=== PATIENT | female | born 1955 | race Caucasian/White ===

== ENCOUNTER 2018-09-07 20:52 | Inpatient (IN) | payer MEDICAID ==
[~2018-09-07] VITALS: Ht 165.1 cm; Wt 106.6 kg
[2018-09-07] MEDS ORDERED: MIDAZOLAM 1 MG/ML, 2ML ONE (21:05)
--- NOTE | 2018-09-07 21:22 | NUR ---
PT IN HOSPITAL GOWN. ALL SEDATION REMOVED DUE TO PT PRESENTING WITH LOW BP. PT REMAINS UNRESPONSIVE. ORDERED FLUIDS INFUSING AT THIS TIME. PT HAD LEE ON ARRIVAL DRAINING CLEAR YELLOW URINE. PT INTUBATED PRIOR TO ARRIVAL. 7.5 TUBE, 25 AT THE LIP. PT PLACED ON VENT BY RT.
--- NOTE | 2018-09-07 21:25 | NUR ---
EKG DONE, CXR DONE. PT ON ALL MONITORS, CARDIAC AND ETCO2 INCLUDED.
--- NOTE | 2018-09-07 21:29 | NUR ---
NO LIST OF HOME MEDS. PT DRIVING TO HOSPITAL. WILL UPDATE WHEN ARRIVES.
[2018-09-07] MEDS ORDERED: MIDAZOLAM HCL 25 MG in SODIUM CHLORIDE 0.9% 245 ML IV PRN (21:30)
[2018-09-07] MEDS ORDERED: SODIUM CHLORIDE 0.9% 1,000ML IVBOLUS ONE ×2 (21:30→23:00)
[2018-09-07] MEDS ORDERED: PLEASE ENTER ALLERGIES MC SCH (21:30)
[2018-09-07 21:45] LABS: ACETAMINOPHEN < 2 mcg/mL (10-30); SALICYLATE LEVEL < 1.7 mg/dL (2.8-20.0)
--- NOTE | 2018-09-07 22:00 | NUR ---
PT EYES ARE OPENED, PT ABLE TO FOLLOW BASIC COMMANDS. PT NOT ABLE TO MOVE LEFT HAND NOR LEFT FOOT. PT ABLE TO NOD "NO" WHEN ASKED IF IN PAIN. PT IS HERE, DOES NOT HAVE A LIST OF PT MEDS. PT STATED PT TAKES "MEDICINE CUP-FULLS" OF SUPPLEMENTS REGULARLY AT HOME.
--- NOTE | 2018-09-07 22:35 | NUR ---
[id number] Addendum: 09/07/18 at 2236 by KENROY ERIC
--- NOTE | 2018-09-07 22:38 | NUR ---
PT MOVING AROUND MORE. PT FAMILY IN ROOM, ASKING PT TO MOVE HER EXTREMITIES. ORDERED SEDATIVE GIVEN. PT RELAXING CALMLY AT THIS TIME.
[2018-09-07] MEDS ORDERED: MIDAZOLAM 1 MG/ML, 5ML IVPush ONE (23:00)
[2018-09-07] MEDS ORDERED: MIDAZOLAM 1 MG/ML, 2ML IVPush ONE ×2 (23:00→23:30)
[2018-09-07] MEDS ORDERED: PROPOFOL 100 ML IV PRN (23:18)
--- NOTE | 2018-09-07 23:19 | NUR ---
pt resting calmly. pt sedation gtt turned up as pt started moving around and lefting hand toward ET tube. pulmonology in to see pt as well as hospitalist. pt vss. will continue to monitor.
[2018-09-07] MEDS ORDERED: FENTANYL PF 100 MCG/2ML IVPush PRN (23:30)
[2018-09-07] MEDS ORDERED: PHARMACY MAY ADJ FOR RENAL FX MC SCH (23:30)
[2018-09-07] MEDS ORDERED: FAMOTIDINE 20 MG/2 ML IV SCH (23:30)
[2018-09-07] MEDS ORDERED: LIDOCAINE-MPF 1%, 2ML ENDO PRN (23:30)
[2018-09-07] MEDS ORDERED: ONDANSETRON 2MG/ML, 2ML IVPush PRN (23:30)
[2018-09-07] MEDS ORDERED: POLYETHYLENE GLYCOL 17 GM PACKET PO PRN (23:30)
[2018-09-07] MEDS ORDERED: morphine SULFATE 10 MG/ML, 1ML IVPush PRN (23:30)
[2018-09-07] MEDS ORDERED: ONDANSETRON ODT 4 MG PO PRN (23:30)
[2018-09-07] MEDS ORDERED: BISACODYL 10 MG SUPP PR PRN (23:30)
[2018-09-07] MEDS ORDERED: LABETALOL 5 MG/ML SYRINGE IVPush PRN (23:30)
[2018-09-07] MEDS ORDERED: PROMETHAZINE 25 MG/ML, 1ML IM PRN (23:30)
[2018-09-07] MEDS ORDERED: hydrALAzine 20 MG/ML, 1ML IVPush PRN (23:30)
[2018-09-07] MEDS ORDERED: OXYcodone IR 5MG TABLET PO PRN (23:30)
[2018-09-07] MEDS ORDERED: SODIUM CHLORIDE 0.9% 1,000 ML IV SCH (23:30)
--- NOTE | 2018-09-07 23:31 | NUR ---
REPORT TO CHANTEL COTTON FOR ROOM 547
[2018-09-08 00:03] LABS: HEMOGLOBIN A1C 5.9 % (4.2-6.3)
[2018-09-08] MEDS: LEVETIRACETAM 500 MG in SODIUM CHLORIDE 0.9% 100 ML IV SCH ×3 (00:56→23:45)
[2018-09-08] MEDS: FAMOTIDINE 20 MG/2 ML IVPush SCH ×3 (00:56→21:00)
[2018-09-08] MEDS: HEPARIN 5,000 UNITS/ML, 1ML SQ SCH ×4 (00:56→23:30)
[2018-09-08] MEDS: D5%-0.45% NACL 1,000 ML IV SCH ×2 (00:57→11:40)
[2018-09-08 01:38] LABS: CULTURE INDICATED? YES; MICROSCOPIC INDICATED
[2018-09-08 04:00] VITALS: BP 92/66
[2018-09-08 04:44] VITALS: BP 115/68
[2018-09-08 05:03] LABS: BASOPHILS # (AUTO) 0.04 x10^3/uL (0-0.1); BASOPHILS % (AUTO) 1 % (0-1); EOSINOPHILS # (AUTO) 0.12 x10^3/uL (0-0.4); EOSINOPHILS % (AUTO) 1 % (1-7); LYMPHOCYTES # (AUTO) 1.61 x10^3/uL (1-3.4); LYMPHOCYTES % (AUTO) 20 % (22-44); MD NO; MEAN CORPUSCULAR HEMOGLOBIN 29.2 pg (27.0-34.8); MEAN CORPUSCULAR HGB CONC 33.3 g/dL (32.4-35.8); MEAN CORPUSCULAR VOLUME 87.5 fL (80-100); MEAN PLATELET VOLUME 8.4 fL (7.4-10.4); MONOCYTES # (AUTO) 0.61 x10^3/uL (0.2-0.8); MONOCYTES % (AUTO) 8 % (2-9); NEUTROPHILS # (AUTO) 5.78 x10^3/uL (1.8-6.8); NEUTROPHILS % (AUTO) 71 % (42-75); PLATELET COUNT 194 x10^3/uL (130-400); RED BLOOD COUNT 4.31 x10^6/uL (3.82-5.3); RED CELL DISTRIBUTION WIDTH 13.3 % (9.6-15.2)
[2018-09-08 05:14] LABS: ALANINE AMINOTRANSFERASE 24 U/L (12-78); ALBUMIN 3.1 g/dL (3.4-5.0); ANION GAP 5 mmol/L (5-15); CALCIUM 7.7 mg/dL (8.5-10.1); CHLORIDE 115 mmol/L (98-107); CREATININE 0.59 mg/dL (0.55-1.02)
[2018-09-08 05:19] LABS: ALKALINE PHOSPHATASE 68 U/L (45-117); BILIRUBIN,TOTAL 0.5 mg/dL (0.2-1.0); CHOL/HDL RATIO 2.5; CHOLESTEROL, TOTAL 111 mg/dL (140-239); HDL CHOL % 40 % (28-40); HDL CHOLESTEROL (DIRECT) 44 mg/dL (40-60); LDL CHOLESTEROL,CALCULATED 44 mg/dL (54-169); TRIGLYCERIDES 113 mg/dL (50-200); VLDL CHOLESTEROL 23 mg/dL (0-25)
[2018-09-08] MEDS: ASPIRIN 325 MG TABLET EC PO SCH (05:39)
[2018-09-08] MEDS: LEVOTHYROXINE 75 MCG TABLET PO SCH (05:39)
[2018-09-08] MEDS: CEFTRIAXONE PMX 1GM/50ML 50 ML IV SCH (08:35)
[2018-09-08] MEDS ORDERED: GADOBUTROL 10 MMOL/10 ML PFS ONE (13:11)
--- NOTE | 2018-09-08 15:14 | NUR ---
Recommend diet of CHOPPED solid and THIN liquids with adherence to the following strategies: HOB at 90* or up to chair for meals Lingual sweep to clear left sided pocketing Small bites Slow rate Straws okay Giles swallow precautions sign posted in patient's room Addendum: 09/08/18 at 1517 by Clemencia MAJOR Amended: Links added. Addendum: 09/08/18 at 1517 by Clemencia MAJOR Amended: Links added.
[2018-09-08] MEDS ORDERED: ATORVASTATIN 20 MG TABLET PO SCH (21:00)
[2018-09-09 04:00] VITALS: BP 126/54
[2018-09-09] MEDS: LEVOTHYROXINE 75 MCG TABLET PO SCH (05:09)
[2018-09-09 05:42] LABS: BASOPHILS # (AUTO) 0.04 x10^3/uL (0-0.1); BASOPHILS % (AUTO) 1 % (0-1); EOSINOPHILS # (AUTO) 0.33 x10^3/uL (0-0.4); EOSINOPHILS % (AUTO) 5 % (1-7); LYMPHOCYTES % (AUTO) 23 % (22-44); MD NO; MEAN CORPUSCULAR HEMOGLOBIN 29.4 pg (27.0-34.8); MEAN CORPUSCULAR HGB CONC 33.2 g/dL (32.4-35.8); MEAN CORPUSCULAR VOLUME 88.5 fL (80-100); MONOCYTES # (AUTO) 0.57 x10^3/uL (0.2-0.8); MONOCYTES % (AUTO) 8 % (2-9); NEUTROPHILS # (AUTO) 4.74 x10^3/uL (1.8-6.8); NEUTROPHILS % (AUTO) 64 % (42-75); PLATELET COUNT 187 x10^3/uL (130-400); RED BLOOD COUNT 4.37 x10^6/uL (3.82-5.3); RED CELL DISTRIBUTION WIDTH 13.5 % (9.6-15.2)
[2018-09-09] MEDS: ACETAMINOPHEN 325 MG TABLET PO PRN ×3 (05:53→21:20)
[2018-09-09] MEDS: ASPIRIN 325 MG TABLET EC PO SCH (05:53)
[2018-09-09] MEDS ORDERED: POTASSIUM CHLORIDE 20 MEQ TAB.ER.PRT PO ONE (07:00)
[2018-09-09] MEDS: CEFTRIAXONE PMX 1GM/50ML 50 ML IV SCH (08:30)
[2018-09-09] MEDS: HEPARIN 5,000 UNITS/ML, 1ML SQ SCH ×3 (08:30→21:21)
[2018-09-09 13:11] VITALS: BP 119/70
[2018-09-09] MEDS: LEVETIRACETAM 1,000 MG in SODIUM CHLORIDE 0.9% 100 ML IV SCH (14:33)
[2018-09-09] MEDS ORDERED: ATOR20TA37 PO (15:25)
[2018-09-09] MEDS ORDERED: LEVO25TA4 PO (15:25)
[2018-09-09] MEDS ORDERED: AMLO-150 PO (15:25)
[2018-09-09 18:32] VITALS: BP 132/87
[2018-09-09] MEDS: ATORVASTATIN 80 MG TABLET PO SCH (21:20)
[2018-09-09] MEDS ORDERED: LEVETIRACETAM 1,000 MG in SODIUM CHLORIDE 0.9% 100 ML IV SCH (23:30)
[2018-09-10] MEDS: LEVETIRACETAM 1,000 MG in SODIUM CHLORIDE 0.9% 100 ML IV SCH ×2 (01:27→13:13)
[2018-09-10 03:29] VITALS: BP 121/74
[2018-09-10] MEDS: ACETAMINOPHEN 325 MG TABLET PO PRN ×2 (04:26→14:27)
[2018-09-10] MEDS: ASPIRIN 325 MG TABLET EC PO SCH (05:29)
[2018-09-10] MEDS: LEVOTHYROXINE 75 MCG TABLET PO SCH (05:29)
[2018-09-10] MEDS: HEPARIN 5,000 UNITS/ML, 1ML SQ SCH ×3 (05:30→21:41)
[2018-09-10 06:17] LABS: BASOPHILS # (AUTO) 0.03 x10^3/uL (0-0.1); BASOPHILS % (AUTO) 1 % (0-1); EOSINOPHILS # (AUTO) 0.34 x10^3/uL (0-0.4); EOSINOPHILS % (AUTO) 7 % (1-7); LYMPHOCYTES # (AUTO) 1.37 x10^3/uL (1-3.4); LYMPHOCYTES % (AUTO) 26 % (22-44); MD NO; MEAN CORPUSCULAR HEMOGLOBIN 29.5 pg (27.0-34.8); MEAN CORPUSCULAR HGB CONC 32.5 g/dL (32.4-35.8); MEAN CORPUSCULAR VOLUME 90.5 fL (80-100); MEAN PLATELET VOLUME 9.3 fL (7.4-10.4); MONOCYTES # (AUTO) 0.37 x10^3/uL (0.2-0.8); MONOCYTES % (AUTO) 7 % (2-9); NEUTROPHILS # (AUTO) 3.14 x10^3/uL (1.8-6.8); NEUTROPHILS % (AUTO) 60 % (42-75); PLATELET COUNT 204 x10^3/uL (130-400); RED BLOOD COUNT 4.64 x10^6/uL (3.82-5.3); RED CELL DISTRIBUTION WIDTH 13.6 % (9.6-15.2)
[2018-09-10 07:21] VITALS: BP 124/78
[2018-09-10] MEDS: CEFTRIAXONE PMX 1GM/50ML 50 ML IV SCH (08:43)
[2018-09-10 13:30] VITALS: BP 150/87
[2018-09-10] MEDS: SENNA/DOCUSATE TABLET PO SCH (15:30)
[2018-09-10] MEDS: DOCUSATE 100 MG CAPSULE PO PRN (16:24)
[2018-09-10 20:51] VITALS: BP 128/85
[2018-09-10] MEDS: ATORVASTATIN 80 MG TABLET PO SCH (21:41)
[2018-09-11] MEDS: LEVETIRACETAM 1,000 MG in SODIUM CHLORIDE 0.9% 100 ML IV SCH ×2 (01:22→14:13)
[2018-09-11 03:07] VITALS: BP 120/77
[2018-09-11 05:02] LABS: BASOPHILS # (AUTO) 0.04 x10^3/uL (0-0.1); BASOPHILS % (AUTO) 1 % (0-1); EOSINOPHILS # (AUTO) 0.23 x10^3/uL (0-0.4); EOSINOPHILS % (AUTO) 4 % (1-7); LYMPHOCYTES # (AUTO) 1.52 x10^3/uL (1-3.4); LYMPHOCYTES % (AUTO) 24 % (22-44); MD NO; MEAN CORPUSCULAR HEMOGLOBIN 29.4 pg (27.0-34.8); MEAN CORPUSCULAR HGB CONC 32.9 g/dL (32.4-35.8); MEAN CORPUSCULAR VOLUME 89.6 fL (80-100); MEAN PLATELET VOLUME 9.1 fL (7.4-10.4); MONOCYTES # (AUTO) 0.48 x10^3/uL (0.2-0.8); MONOCYTES % (AUTO) 8 % (2-9); NEUTROPHILS % (AUTO) 64 % (42-75); PLATELET COUNT 206 x10^3/uL (130-400); RED BLOOD COUNT 4.52 x10^6/uL (3.82-5.3); RED CELL DISTRIBUTION WIDTH 12.9 % (9.6-15.2)
[2018-09-11 05:14] LABS: ANION GAP 5 mmol/L (5-15); CALCIUM 8.5 mg/dL (8.5-10.1); CHLORIDE 111 mmol/L (98-107)
[2018-09-11 05:16] LABS: CREATININE 0.66 mg/dL (0.55-1.02)
[2018-09-11] MEDS: LEVOTHYROXINE 75 MCG TABLET PO SCH (05:33)
[2018-09-11] MEDS: HEPARIN 5,000 UNITS/ML, 1ML SQ SCH ×3 (05:33→21:00)
[2018-09-11] MEDS: DOCUSATE 100 MG CAPSULE PO PRN (06:31)
[2018-09-11 07:20] VITALS: BP 135/82
[2018-09-11] MEDS: ACETAMINOPHEN 325 MG TABLET PO PRN (08:35)
[2018-09-11] MEDS: CEFTRIAXONE PMX 1GM/50ML 50 ML IV SCH (08:35)
[2018-09-11] MEDS: SENNA/DOCUSATE TABLET PO SCH (08:35)
[2018-09-11 12:18] VITALS: BP 119/75
[2018-09-11 19:36] VITALS: BP 112/71
[2018-09-11] MEDS: ATORVASTATIN 80 MG TABLET PO SCH (21:08)
[2018-09-12] MEDS: LEVETIRACETAM 1,000 MG in SODIUM CHLORIDE 0.9% 100 ML IV SCH ×2 (02:17→15:34)
[2018-09-12 02:20] VITALS: BP 110/80
[2018-09-12] MEDS: HEPARIN 5,000 UNITS/ML, 1ML SQ SCH ×3 (05:00→23:44)
[2018-09-12 05:05] LABS: BASOPHILS # (AUTO) 0.03 x10^3/uL (0-0.1); BASOPHILS % (AUTO) 1 % (0-1); EOSINOPHILS # (AUTO) 0.21 x10^3/uL (0-0.4); EOSINOPHILS % (AUTO) 4 % (1-7); LYMPHOCYTES # (AUTO) 1.76 x10^3/uL (1-3.4); LYMPHOCYTES % (AUTO) 31 % (22-44); MD NO; MEAN CORPUSCULAR HEMOGLOBIN 28.5 pg (27.0-34.8); MEAN CORPUSCULAR HGB CONC 31.8 g/dL (32.4-35.8); MEAN CORPUSCULAR VOLUME 89.5 fL (80-100); MEAN PLATELET VOLUME 8.9 fL (7.4-10.4); MONOCYTES # (AUTO) 0.62 x10^3/uL (0.2-0.8); MONOCYTES % (AUTO) 11 % (2-9); NEUTROPHILS # (AUTO) 3.17 x10^3/uL (1.8-6.8); NEUTROPHILS % (AUTO) 55 % (42-75); PLATELET COUNT 209 x10^3/uL (130-400); RED BLOOD COUNT 4.74 x10^6/uL (3.82-5.3); RED CELL DISTRIBUTION WIDTH 13.2 % (9.6-15.2)
[2018-09-12] MEDS: LEVOTHYROXINE 75 MCG TABLET PO SCH (05:50)
[2018-09-12 07:52] VITALS: BP 132/79
[2018-09-12] MEDS: SENNA/DOCUSATE TABLET PO SCH (09:00)
[2018-09-12] MEDS: CEFTRIAXONE PMX 1GM/50ML 50 ML IV SCH (10:08)
[2018-09-12 14:22] VITALS: BP 117/76
[2018-09-12 18:32] VITALS: BP 131/83
[2018-09-12] MEDS: ATORVASTATIN 80 MG TABLET PO SCH (20:39)
[2018-09-13 00:03] VITALS: BP 126/71
[2018-09-13] MEDS: LEVETIRACETAM 1,000 MG in SODIUM CHLORIDE 0.9% 100 ML IV SCH (02:59)
[2018-09-13 05:42] LABS: O2 FLOW 0 L/min
[2018-09-13 05:46] LABS: BASOPHILS # (AUTO) 0.07 x10^3/uL (0-0.1); BASOPHILS % (AUTO) 1 % (0-1); EOSINOPHILS # (AUTO) 0.24 x10^3/uL (0-0.4); EOSINOPHILS % (AUTO) 4 % (1-7); LYMPHOCYTES # (AUTO) 1.69 x10^3/uL (1-3.4); LYMPHOCYTES % (AUTO) 26 % (22-44); MD NO; MEAN CORPUSCULAR HEMOGLOBIN 29.6 pg (27.0-34.8); MEAN CORPUSCULAR HGB CONC 32.9 g/dL (32.4-35.8); MEAN CORPUSCULAR VOLUME 89.8 fL (80-100); MEAN PLATELET VOLUME 8.4 fL (7.4-10.4); MONOCYTES # (AUTO) 0.69 x10^3/uL (0.2-0.8); MONOCYTES % (AUTO) 11 % (2-9); NEUTROPHILS # (AUTO) 3.71 x10^3/uL (1.8-6.8); NEUTROPHILS % (AUTO) 58 % (42-75); PLATELET COUNT 235 x10^3/uL (130-400); RED BLOOD COUNT 4.69 x10^6/uL (3.82-5.3); RED CELL DISTRIBUTION WIDTH 13.4 % (9.6-15.2)
[2018-09-13] MEDS: LEVOTHYROXINE 75 MCG TABLET PO SCH (05:52)
[2018-09-13 06:45] VITALS: BP 122/75
[2018-09-13] MEDS: CEFTRIAXONE PMX 1GM/50ML 50 ML IV SCH (08:15)
[2018-09-13] MEDS: SENNA/DOCUSATE TABLET PO SCH (08:15)
[2018-09-13] MEDS: HEPARIN 5,000 UNITS/ML, 1ML SQ SCH ×2 (08:15→16:26)
[2018-09-13 12:14] VITALS: BP 121/79
[2018-09-13] MEDS ORDERED: LEVO75TA PO (15:37)
[2018-09-13] MEDS ORDERED: DOCU-131 PO (15:37)
[2018-09-13] MEDS ORDERED: ATOR-2 PO (15:37)
[2018-09-13] MEDS ORDERED: LEVE500T53 PO (15:37)
[2018-09-13 20:05] VITALS: BP 119/71
[2018-09-13] MEDS: LEVETIRACETAM 500 MG TABLET PO SCH (21:21)
[2018-09-13] MEDS: ATORVASTATIN 80 MG TABLET PO SCH (21:21)
[2018-09-13] MEDS: ACETAMINOPHEN 325 MG TABLET PO PRN (22:22)
[2018-09-14] MEDS: HEPARIN 5,000 UNITS/ML, 1ML SQ SCH ×2 (00:01→08:14)
[2018-09-14 01:36] VITALS: BP 116/67
[2018-09-14] MEDS: LEVOTHYROXINE 75 MCG TABLET PO SCH (05:58)
[2018-09-14 06:38] VITALS: BP 115/76
[2018-09-14 08:00] LABS: BASOPHILS # (AUTO) 0.06 x10^3/uL (0-0.1); BASOPHILS % (AUTO) 1 % (0-1); EOSINOPHILS # (AUTO) 0.29 x10^3/uL (0-0.4); EOSINOPHILS % (AUTO) 5 % (1-7); LYMPHOCYTES % (AUTO) 28 % (22-44); MD NO; MEAN CORPUSCULAR HEMOGLOBIN 28.4 pg (27.0-34.8); MEAN CORPUSCULAR HGB CONC 31.7 g/dL (32.4-35.8); MEAN CORPUSCULAR VOLUME 89.7 fL (80-100); MEAN PLATELET VOLUME 8.3 fL (7.4-10.4); MONOCYTES # (AUTO) 0.58 x10^3/uL (0.2-0.8); MONOCYTES % (AUTO) 10 % (2-9); NEUTROPHILS # (AUTO) 3.18 x10^3/uL (1.8-6.8); NEUTROPHILS % (AUTO) 56 % (42-75); PLATELET COUNT 248 x10^3/uL (130-400); RED BLOOD COUNT 5.28 x10^6/uL (3.82-5.3); RED CELL DISTRIBUTION WIDTH 13.3 % (9.6-15.2)
[2018-09-14] MEDS: SENNA/DOCUSATE TABLET PO SCH (08:06)
[2018-09-14] MEDS: LEVETIRACETAM 500 MG TABLET PO SCH (08:14)
== END 2018-09-14 11:25 | disposition home or self-care (01) | DRG 208 ==
LOC: ED 21:47 → EDIP 22:03 → CCU 23:41 → 4EST 09-09 13:05 → DCLOUNGE 09-14 11:07
PROVIDERS: ADMIT Internal Medicine; ATTEND Internal Medicine
PROC: 0T9B70Z Drainage of Bladder with Drainage Device, Via Natural or Artificial Opening (ICD-10-PCS; principal; 2018-09-07)
PROC: 5A1935Z Respiratory Ventilation, Less than 24 Consecutive Hours (ICD-10-PCS; 2018-09-07)
PROC: 0BH17EZ Insertion of Endotracheal Airway into Trachea, Via Natural or Artificial Opening (ICD-10-PCS; 2018-09-07)
DX: J96.01 Acute respiratory failure with hypoxia (principal); G93.41 Metabolic encephalopathy; J98.11 Atelectasis; N39.0 Urinary tract infection, site not specified; Z99.11 Dependence on respirator [ventilator] status; G40.901 Epilepsy, unspecified, not intractable, with status epilepticus; D64.9 Anemia, unspecified; E03.9 Hypothyroidism, unspecified; E66.9 Obesity, unspecified; F32.9 Major depressive disorder, single episode, unspecified; F41.9 Anxiety disorder, unspecified; I36.1 Nonrheumatic tricuspid (valve) insufficiency; G89.29 Other chronic pain; I11.9 Hypertensive heart disease without heart failure; R29.810 Facial weakness; Z79.82 Long term (current) use of aspirin; Z79.899 Other long term (current) drug therapy; Z68.39 Body mass index [BMI] 39.0-39.9, adult; Z86.718 Personal history of other venous thrombosis and embolism; Z90.710 Acquired absence of both cervix and uterus; Z95.828 Presence of other vascular implants and grafts; Z88.0 Allergy status to penicillin; I69.344 Monoplegia of lower limb following cerebral infarction affecting left non-dominant side
CPT/HCPCS: 36415; 36600; 74230; 96361; 99291; J3490; 70450; 70496; 70498; 70547; 70553; 71045; 80048; 80053; 80061; 80307; 81001; 82140; 82803; 82962; 83036; 83735; 84100; 84439; 84443; 84478; 85025; 87070; 87081; 87086; 87205; 93005; 93306; 93970; 94002; 94003; 95819; 96374; 96376; A9585; G0378; J0696; J1644; J1953; J2250; J2704; 92523-GN; J7030; J7050